=== PATIENT | male | born 1955 | race Caucasian/White ===

== ENCOUNTER → 2016-07-16 | Outpatient (CLI) | payer BC ==
[2014-04-09 08:23] VITALS: BP 154/97
[~2016-07-16] MED LIST: FELO10TA PO; HYDR12.53 PO; PRAV40TA2 PO
--- NOTE | 2016-07-16 12:15 | RAD ---
EXAM: Right lower extremity bone length study. HISTORY: Calvillo & Nephew protocol. COMPARISON: 05/18/2016. FINDINGS: Frontal views of the right lower extremity are obtained. There is mild medial compartment joint space narrowing and mild to moderate medial and lateral compartment spurring of the right knee. There is medial and lateral compartment chondrocalcinosis. There is a fractured metallic fixation bracket traversing a corticated ossific body and the medial condyle, stable in appearance. IMPRESSION: 1. Moderate osteoarthritis of the right knee with chondrocalcinosis, stable in appearance. 2. Metallic fixation bracket traversing a corticated ossicle and the medial condyle. There is [super portion of the bracket is fractured, stable in appearance.]
--- NOTE | 2016-07-16 12:37 | RAD ---
EXAM: Orbits, single view. HISTORY: Foreign body. COMPARISON: None. FINDINGS: A frontal view of the orbits is obtained. No metallic foreign body is seen overlying the orbits. There are dental restorations. There is no sinus opacification or air-fluid level. There is minimal nasal septal deviation. IMPRESSION: No metallic orbital foreign body.
--- NOTE | 2016-07-16 13:47 | RAD ---
MR of the right knee - Calvillo and Nephew protocol History: Chronic right knee pain. Preoperative planning. Technique: Sequences are obtained in accordance with the Calvillo and nephew protocol. Note this is not a diagnostic exam, but rather intended solely for the purpose of medical sonographer construction. Small joint effusion. Primary osteoarthritis and chondromalacia identified. Metal artifact presumably from hardware identified at medial knee. There is some signal at the anterior horn of the lateral meniscus, possible tear. Electronically signed by: Nick Foster MD (Jul 16, 2016 13:46:14)
== END | disposition home or self-care (01) ==
LOC: RAD 11:27
PROVIDERS: ATTEND Orthopaedic Surgery Sports Medicine
DX: M17.11 Unilateral primary osteoarthritis, right knee (principal); M11.261 Other chondrocalcinosis, right knee; J34.2 Deviated nasal septum; M25.461 Effusion, right knee; M94.261 Chondromalacia, right knee
CPT/HCPCS: 70030; 73721; 77073

== ENCOUNTER → 2016-07-30 | Outpatient (CLI) | payer BC ==
[2014-04-09 08:23] VITALS: BP 154/97
[2016-07-30 09:53] LABS: BILIRUBIN,URINE NEGATIVE (NEG); GLUCOSE,URINE NEGATIVE (NEG); NITRITE,URINE NEGATIVE (NEG); PH,URINE 5.5; PROTEIN,URINE NEGATIVE (NEG-TRACE); UROBILINOGEN,URINE 0.2 mg/dL (0.2 mg/dL)
[2016-07-30 09:54] LABS: BACTERIA,URINE 0 /HPF (0-FEW); RBC,URINE 0 /HPF (0-2); SQUAMOUS EPITHELIAL CELL,UR FEW /LPF; WBC,URINE OCC /HPF (0-4)
[2016-07-30 09:54] LABS: BASO # 0.1 x10^3/uL (0.0-0.2); BASO % 1 % (0-3); EOS % 2 % (0-3); HEMATOCRIT 47.1 % (39.0-53.0); HEMOGLOBIN 15.7 g/dL (13.0-17.5); LYMPH # 2.3 x10^3/uL (1.0-4.8); LYMPH % 31 % (24-48); MEAN CORPUSCULAR HEMOGLOBIN 29 pg (25-35); MEAN CORPUSCULAR HGB CONC 33 g/dL (31-37); MEAN CORPUSCULAR VOLUME 87 fL (79-100); MONO % 9 % (0-9); NEUT % 58 % (31-73); PLATELET COUNT 309 x10^3/uL (140-400); RED BLOOD COUNT 5.39 x10^6/uL (4.30-5.70); RED CELL DISTRIBUTION WIDTH 14.3 % (11.5-14.5); WHITE BLOOD COUNT 7.5 x10^3/uL (4.0-11.0)
[2016-07-30 10:03] LABS: INR 1.1 (0.8-1.1); PROTHROMBIN TIME PATIENT 13.3 SEC (11.7-14.0)
[2016-07-30 10:09] LABS: CALCIUM 9.3 mg/dL (8.5-10.1); CREATININE 1.2 mg/dL (0.7-1.3); GFR 61.1; POTASSIUM 3.8 mmol/L (3.5-5.1)
--- NOTE | 2016-07-30 12:30 | EKG ---
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
--- NOTE | 2016-07-30 15:06 | RAD ---
Indication: Preop for knee replacement surgery. Time of exam 1302 hours. No prior studies are available for comparison. The heart size is normal. The lungs are clear. The vascularity is normal. No effusion or pneumothorax is detected. Impression: No acute cardiopulmonary process is detected.
== END | disposition home or self-care (01) ==
LOC: SURGPAT 12:30
PROVIDERS: ATTEND Orthopaedic Surgery Sports Medicine
DX: Z01.818 Encounter for other preprocedural examination (principal); I10 Essential (primary) hypertension; E78.5 Hyperlipidemia, unspecified
CPT/HCPCS: 36415; 71020; 80048; 81001; 85027; 85610; 85651; 85730; 87641; 93005

== ENCOUNTER 2016-08-13 05:42 | Inpatient (IN) | payer BC ==
[2016-08-13] VITALS (10 sets, daily range): BP systolic 112–140; BP diastolic 75–96
[~2016-08-13] VITALS: Ht 188 cm; Wt 124.3 kg
[2016-08-13] MEDS ORDERED: HYDROCODONE/APAP 7.5/325MG TABLET. PO PRN (06:00)
[2016-08-13] MEDS ORDERED: TRANEXAMIC ACID 1,000 MG in IV NS 50ML -- 1ST BAG INJ ONE (06:00)
[2016-08-13] MEDS ORDERED: MORPHINE SULFATE 5 MG, ROPIVacaine 0.5% PF 60 ML, EPINEPHRINE 0.5 MG in IV NORMAL SALIN... INT ART ONE (06:00)
[2016-08-13] MEDS ORDERED: CEFAZOLIN 2GM PREMIX 50 ML IV PRN ×2 (06:00→12:15)
[2016-08-13] MEDS ORDERED: CEFAZOLIN 2GM PREMIX 50 ML IV ONE (06:25)
[2016-08-13] MEDS ORDERED: HYDROCODONE/APAP 7.5/325MG TABLET. ONE (06:25)
[2016-08-13] MEDS ORDERED: PROPOFOL 20 ML IV ONE (06:54)
[2016-08-13] MEDS ORDERED: FENTANYL PF 250 MCG/5 ML VIAL. ONE (06:54)
[2016-08-13] MEDS ORDERED: MIDAZOLAM HCL 2 MG/2 ML VIAL. ONE (06:54)
[2016-08-13] MEDS ORDERED: DEXAMETHASONE SOD PHOS 20 MG/5 ML VIAL. ONE (06:54)
[2016-08-13] MEDS ORDERED: SEVOFLURANE 61 TO 120 MINUTES. IH ONE (06:54)
[2016-08-13] MEDS ORDERED: ONDANSETRON PF 4 MG/2 ML VIAL. ONE (06:55)
[2016-08-13] MEDS ORDERED: FAMOTIDINE 20 MG/2 ML VIAL ONE (06:55)
[2016-08-13] MEDS ORDERED: LIDOCAINE 2% 100 MG/5 ML DISP.SYRIN. ONE (06:55)
[2016-08-13] MEDS ORDERED: PROCHLORPERAZINE 10 MG/2 ML VIAL. IV PRN ×2 (07:00→07:45)
[2016-08-13] MEDS ORDERED: IV RINGERS,LACTATED 1000ML 1,000 ML IV SCH (07:00)
[2016-08-13] MEDS ORDERED: MORPHINE SULFATE 2 MG/ML DISP.SYRIN. IV PRN ×2 (07:00→07:45)
[2016-08-13] MEDS ORDERED: LIDOCAINE 1% 1 ML SYRINGE. ID PRN (07:00)
[2016-08-13] MEDS ORDERED: HYDROCODONE/APAP 7.5/325MG TABLET. PO ONE (07:00)
[2016-08-13] MEDS ORDERED: ONDANSETRON PF 4 MG/2 ML VIAL. IV PRN (07:00)
[2016-08-13] MEDS ORDERED: FENTANYL PF 100 MCG/2 ML VIAL. IV PRN ×3 (07:00→07:45)
[2016-08-13 07:02] LABS: PROTHROMBIN TIME PATIENT 12.8 SEC (11.7-14.0)
--- NOTE | 2016-08-13 07:38 | PDOC ---
BRIEF OPERATIVE NOTE Date: Aug 13, 2016 Pre-Op Diagnosis R knee DJD Post-Op Diagnosis same Procedure Performed R TKA Surgeon Jeb Zaman Anesthesia Type: General Blood Loss 100mL Complications none ROLAND SHI II, MD Aug 13, 2016 07:38
[2016-08-13] MEDS ORDERED: METOCLOPRAMIDE HCL 10 MG/2 ML VIAL. IV PRN (07:45)
[2016-08-13] MEDS ORDERED: MORPHINE SULFATE 4 MG/ML DISP.SYRIN. IV PRN ×2 (07:45)
[2016-08-13] MEDS ORDERED: ACETAMINOPHEN 325 MG TABLET. PO PRN (07:45)
[2016-08-13] MEDS ORDERED: DIPHENHYDRAMINE 50 MG/ML VIAL IV PRN (07:45)
[2016-08-13] MEDS ORDERED: CEFAZOLIN 2GM PREMIX 50 ML IV SCH (07:45)
[2016-08-13] MEDS ORDERED: PROCHLORPERAZINE 5 MG TABLET. PO PRN (07:45)
[2016-08-13] MEDS ORDERED: 0.9 % SODIUM CHLORIDE 10 ML DISP.SYRIN. IV PRN (07:45)
[2016-08-13] MEDS ORDERED: TRAMADOL 50 MG TABLET. PO PRN ×2 (07:45)
[2016-08-13] MEDS ORDERED: MORPHINE SULFATE 10 MG/ML VIAL. IV PRN (07:45)
[2016-08-13] MEDS ORDERED: CALCIUM CARBONATE 500 MG TAB.CHEW PO PRN (07:45)
[2016-08-13] MEDS ORDERED: DEXTROSE 50% 25 GM / 50ML DISP.SYRIN. IV PRN (07:45)
[2016-08-13] MEDS ORDERED: TRANEXAMIC ACID 1,000 MG in IV NS 50ML -- 2ND BAG INJ ONE (08:00)
[2016-08-13] MEDS ORDERED: MORPHINE SULFATE 10 MG/ML VIAL. ONE (08:42)
[2016-08-13] MEDS: FENTANYL PF 100 MCG/2 ML VIAL. IV PRN ×2 (10:05→10:38)
[2016-08-13] MEDS: HYDROMORPHONE 2 MG/ML VIAL. IV PRN ×4 (10:20→11:06)
--- NOTE | 2016-08-13 10:30 | RAD ---
Right knee, 2 views, 08/13/2016: History: Postop evaluation Comparison is made to a study from 05/18/2016. A total knee prosthesis has been placed in satisfactory position. Again noted is a fractured old surgical staple related to the medial femoral condyle. It transfixes a bony fragment which appears to be nonunited. There is no evidence of a retained surgical clip, needle or radiopaque sponge. IMPRESSION: Interval insertion of a right total knee prosthesis in satisfactory position.
[2016-08-13] MEDS: IV DEXTROSE 5 %-0.45 % NACL 1,000 ML IV SCH ×2 (11:53→17:34)
[2016-08-13] MEDS: AMLODIPINE BESYLATE 10 MG TABLET PO SCH (12:00)
[2016-08-13] MEDS: HYDROCHLOROTHIAZIDE 12.5 MG CAPSULE. PO SCH (12:00)
[2016-08-13] MEDS: SENNOSIDES/DOCUSATE 8.6/50MG TABLET. PO SCH (12:08)
[2016-08-13] MEDS: CEFAZOLIN 2GM PREMIX 50 ML IV SCH ×2 (12:12→18:26)
[2016-08-13] MEDS: HYDROCODONE/APAP 7.5/325MG TABLET. PO PRN ×2 (14:38→21:35)
[2016-08-13] MEDS ORDERED: WARFARIN 7.5 MG TABLET. PO ONE (16:00)
[2016-08-13] MEDS: FERROUS SULFATE 325 MG TABLET PO SCH (16:44)
[2016-08-13] MEDS: HYDROCODONE/APAP 10/325 TABLET. PO PRN (17:52)
[2016-08-13] MEDS ORDERED: CELECOXIB 200 MG CAPSULE PO SCH (21:00)
--- NOTE | 2016-08-13 21:08 | OP ---
DATE OF SURGERY: 08/13/2016 SURGEON: Alonso Shi MD. WELDING PROCESS ENGINEER: Divina Zaman. ANESTHESIA: General. PREOPERATIVE DIAGNOSIS: Posttraumatic arthritis, right knee. POSTOPERATIVE DIAGNOSIS: Posttraumatic arthritis, right knee. PROCEDURE PERFORMED: Right total knee arthroplasty. COMPONENTS INSERTED: 1. Calvillo and Nephew size 7 Journey II Oxinium femoral component. 2. A 9 mm thick polyethylene insert. 3. Size 6 tibial tray. 4. A 23 mm biconvex patella. ESTIMATED BLOOD LOSS: 100 mL. TOURNIQUET TIME: 60 minutes. REASON FOR PROCEDURE: The patient is a very pleasant 61-year-old gentleman who failed all conservative therapies including brace, physical therapy, rehabilitation, and injections for his severe and progressive right knee pain that was interfering with his ability to exercise as well as walk. Because of the progressive pain and failure of conservative therapies, he and I had a discussion of risks, benefits, alternatives of proceeding with the above surgery and he elected to proceed. DESCRIPTION OF PROCEDURE: The patient was greeted in the preoperative area by myself. Correct extremity was marked and verified. He was taken to the operative suite and antibiotics were started en route. Once in the OR, he was transferred gently supine on the OR table and had successful induction of general anesthesia. He was then secured to the bed with all pressure points padded and a nonsterile tourniquet was taped in place to his right thigh. We placed a foot plate for Boyer leg connelly and a padded bolster at his hip to maintain his knee in 90 degrees. I conducted an examination under anesthesia. His knee was stable to varus and valgus at 0 and 30 of flexion. His range of motion was 5 degrees to 110 degrees. We then proceeded to prep and drape right lower extremity in usual sterile fashion including an Ioban sandwich. We then conducted a standard preoperative timeout. I then palpated, marked surface anatomy and exsanguinated the extremity with an Esmarch and insufflated the tourniquet to 300 mmHg. I then made my standard anterior midline skin incision, dissected down through subcutaneous tissue, identified the quadriceps tendon, medial border of the patella and patellar tendon. He had a fair amount of thick fibrotic scar tissue from approximately the mid portion of the patella distally at the medial knee. I elected to go through my preferred incision as his 2 prior skin incisions were approximately 40 years old. In addition to that, they were medial and lateral incisions. I continued my dissection and performed a medial parapatellar arthrotomy in my routine fashion. I then brought the leg out into extension and bluntly dissected the fat pad off the posterior aspect of the patella and protected this with an Army-Wathena and then excised the fat pad with curved Mayos. I released horns of the menisci and then performed my medial release with a combination of Orosco and electrocautery. I then flexed the knee and excised the cruciates. I then placed my Visionaire cutting block, we pinned this into place. I then removed the Visionaire cutting block as I did not think it would accommodate for the additional cut I needed to make. I then placed my normal distal femoral cutting block at the +2 position and placed a third pin and then made my distal femoral cut. I then placed my 5-in-1 cutting guide through my Visionaire holes at the distal femur. Z retractors were used. I then made my distal femoral cuts in these planes. I then removed the 5-in-1 cutting guide and the loose bone ends from the operative field. I took care to ensure I removed all posterior osteophytes. After this, I placed my pickle fork retractor, my two Z retractors and then my extramedullary tibial cutting guide and made my proximal tibial cut after pinning this into place. I delivered the bone cut from the operative field with the electrocautery circumferentially around it. I then trialed my tibial baseplate and felt a size 6 gave the best coverage. I pinned this into place, referencing the medial third of the tibial tubercle. I then drilled and punched for the fittings of the baseplate. I then impacted my trial femoral component in place and then reamed and punched for my cam and then placed my cam piece. then trialed a 9/10 polyarticular insert, but the tendon was too tight. This range of motion with the 9 in placd was 0-140 degrees. His knee was stable to varus and valgus in extension and mid flexion. After this, I directed my attention to the patella and sized and reamed for a 23 biconvex patella. I was happy this patellar tracking with range of motion. I then removed all trial components, thoroughly irrigated all bony surfaces and proceeded to cement in place my tibial component followed by my femoral component. After these two were placed trial polyethylene articular insert was inserted and cement was allowed to polymerize with the knee in extension. All excess bone cement was removed. I then clamped and cementing my patellar button into place. I then injected my periarticular mixture in the missael-incisional soft tissues as well as the knee capsule. After this, I allowed the cement to fully harden and then we trialed the knee in range of motion and stability, again I selected a 9. I removed the trial 9 and replaced it with a 9 mm thick polyethylene articular insert. After this, the tourniquet was let down. Bleeders were cauterized. It should be noted that prior to placing my permanent polyethylene insert, I did irrigate out the knee again. There was some venous oozing, but there really was not too much and I elected not to place a drain. I then closed the arthrotomy with simple interrupted #1 Vicryl with the exception of a dnkaot-xo-svkkv proximally. I then tested the arthrotomy closure in flexion. There was no extravasation of blood. Inverted interrupted 2-0 in a multilayer fashion was used for subcutaneous tissue and running 4-0 Monocryl was used for skin. Prior to accomplishing wound closure, all counts were reported correct x 2. The patient tolerated surgery well. No complications. At the conclusion of surgery, he was awakened and transferred gently supine to the hospital bed and taken to PACU in stable and extubated condition. Postop plan [facility] as well as for DVT and antibiotic prophylaxis. ALONSO SHI MD DR: JADON/anthony JOB#: [id number] / [id number] ELISSA
[2016-08-13] MEDS: ATORVASTATIN CALCIUM 10 MG TABLET. PO SCH (21:36)
[2016-08-13] MEDS: ZOLPIDEM 5 MG TABLET. PO PRN (21:38)
[2016-08-14] MEDS: CEFAZOLIN 2GM PREMIX 50 ML IV SCH (01:28)
[2016-08-14] MEDS: HYDROCODONE/APAP 10/325 TABLET. PO PRN ×2 (01:28→08:57)
[2016-08-14] MEDS: IV DEXTROSE 5 %-0.45 % NACL 1,000 ML IV SCH (03:34)
[2016-08-14] MEDS ORDERED: MAGNESIUM HYDROXIDE 2,400 MG/30 ML ORAL.SUSP. PO PRN (06:00)
[2016-08-14] MEDS: HYDROCODONE/APAP 7.5/325MG TABLET. PO PRN (06:08)
[2016-08-14 07:00] VITALS: BP 137/84
[2016-08-14 08:00] LABS: HEMATOCRIT 42.1 % (39.0-53.0); HEMOGLOBIN 13.6 g/dL (13.0-17.5)
[2016-08-14 08:44] LABS: INR 1.3 (0.8-1.1); PROTHROMBIN TIME PATIENT 15.5 SEC (11.7-14.0)
[2016-08-14] MEDS: MULTIVITAMIN with MINERAL TABLET. PO SCH (08:57)
[2016-08-14] MEDS: HYDROCHLOROTHIAZIDE 12.5 MG CAPSULE. PO SCH (08:58)
[2016-08-14] MEDS: FERROUS SULFATE 325 MG TABLET PO SCH ×2 (08:58→17:00)
[2016-08-14] MEDS: SENNOSIDES/DOCUSATE 8.6/50MG TABLET. PO SCH (08:58)
[2016-08-14] MEDS: AMLODIPINE BESYLATE 10 MG TABLET PO SCH (08:58)
--- NOTE | 2016-08-14 09:12 | DISCH ---
DISCHARGE INSTRUCTIONS Condition on Discharge Condition on Discharge: Stable Activity After Discharge Activity Instructions for Disc: No restrictions Bathing Instructions: Shower-keep dressing dry Weight Bearing Status after Di: As tolerated Diet after Discharge Diet after Discharge: Regular Wound Incision Care Wound/Incision Care: Ice to area for comfort, Keep wound/cast CDI, Do not change dressing Contacting the DRAlex after DC Call your doctor for: Concerns you may have Follow-Up Follow up with: Jeb in 2wks Warfarin Follow-Up Warfarin Follow UP: per pharmacy ROLAND SHI II, MD Aug 14, 2016 09:12
--- NOTE | 2016-08-14 09:14 | PDOC ---
ORTHO PROGRESS NOTES Subjective Nils tells me that his pain is tolerable. He was up and walking around yesterday. Descended chair as well. He denies any particular complaints or concern, he is eager to get started on his rehabilitation. Vitals Vital Signs Date Time Temp Pulse Resp B/P Pulse Ox O2 Delivery O2 Flow Rate FiO2 08/14/16 08:58 111 137/84 08/14/16 08:57 Room Air 08/14/16 07:00 99.1 14 96 99.1 08/13/16 19:50 2.0 Labs Laboratory Tests Test 08/13/16 06:10 08/13/16 06:15 08/14/16 07:40 Albumin 3.8g/dL (3.4-5.0) Prothrombin Time 12.8SEC (11.7-14.0) 15.5SEC (11.7-14.0) Prothromb Time International Ratio 1.0 (0.8-1.1) 1.3 (0.8-1.1) Activated Partial Thromboplast Time 28SEC (24-38) Hemoglobin 13.6g/dL (13.0-17.5) Hematocrit 42.1% (39.0-53.0) Mean Corpuscular Hemoglobin Concent 32g/dL (31-37) Laboratory Tests Test 08/14/16 07:40 Hemoglobin 13.6g/dL (13.0-17.5) Hematocrit 42.1% (39.0-53.0) Mean Corpuscular Hemoglobin Concent 32g/dL (31-37) Prothrombin Time 15.5SEC (11.7-14.0) Prothromb Time International Ratio 1.3 (0.8-1.1) Notes He is awake and alert and resting in bed. His dressing is intact and dry. Mild edema at his right ankle. He can wiggle his toes. Dorsalis pedis 2+. EHL and FHL. 5. Normal sensation. Assessment and Plan He will start his rehabilitation. We will anticipate him being discharged home tomorrow. ROLAND SHI II, MD Aug 14, 2016 09:14
[2016-08-14 11:00] VITALS: BP 147/85
[2016-08-14 11:15] VITALS: BP 150/94
[2016-08-14] MEDS: OXYCODONE/APAP 5/325 TABLET. PO PRN ×2 (11:34→17:02)
[2016-08-14] MEDS ORDERED: BISACODYL 10 MG SUPP.RECT PR PRN (16:00)
[2016-08-14] MEDS ORDERED: WARFARIN 5 MG TABLET. PO ONE (16:00)
[2016-08-14 18:00] VITALS: BP 155/101
[2016-08-14] MEDS: ATORVASTATIN CALCIUM 10 MG TABLET. PO SCH (20:46)
[2016-08-14] MEDS: ZOLPIDEM 5 MG TABLET. PO PRN (21:02)
[2016-08-15 06:40] VITALS: BP 139/89
[2016-08-15] MEDS: OXYCODONE/APAP 7.5/325 TABLET. PO PRN ×2 (06:47→12:27)
[2016-08-15 07:37] LABS: HEMATOCRIT 42.6 % (39.0-53.0)
[2016-08-15] MEDS ORDERED: POLYETHYLENE GLYCOL 3350 17 GM PACKET. PO PRN (07:45)
[2016-08-15 07:46] LABS: INR 1.6 (0.8-1.1); PROTHROMBIN TIME PATIENT 17.8 SEC (11.7-14.0)
[2016-08-15] MEDS: HYDROCHLOROTHIAZIDE 12.5 MG CAPSULE. PO SCH (08:22)
[2016-08-15] MEDS: MULTIVITAMIN with MINERAL TABLET. PO SCH (08:22)
[2016-08-15] MEDS: FERROUS SULFATE 325 MG TABLET PO SCH (08:23)
[2016-08-15] MEDS: SENNOSIDES/DOCUSATE 8.6/50MG TABLET. PO SCH (08:23)
[2016-08-15] MEDS: AMLODIPINE BESYLATE 10 MG TABLET PO SCH (08:26)
--- NOTE | 2016-08-15 08:47 | PDOC ---
ORTHO PROGRESS NOTES Subjective pain controlled, +bm, no abd complaints. No CP, SOB, N/V Vitals Vital Signs Date Time Temp Pulse Resp B/P Pulse Ox O2 Delivery O2 Flow Rate FiO2 08/15/16 08:26 121 131/86 08/15/16 07:54 Room Air 08/15/16 07:47 97 08/15/16 06:47 18 08/15/16 06:40 98.5 98.5 Labs Laboratory Tests Test 08/14/16 07:40 08/15/16 07:05 Hemoglobin 13.6g/dL (13.0-17.5) 14.0g/dL (13.0-17.5) Hematocrit 42.1% (39.0-53.0) 42.6% (39.0-53.0) Mean Corpuscular Hemoglobin Concent 32g/dL (31-37) 33g/dL (31-37) Prothrombin Time 15.5SEC (11.7-14.0) 17.8SEC (11.7-14.0) Prothromb Time International Ratio 1.3 (0.8-1.1) 1.6 (0.8-1.1) Laboratory Tests Test 08/15/16 07:05 Hemoglobin 14.0g/dL (13.0-17.5) Hematocrit 42.6% (39.0-53.0) Mean Corpuscular Hemoglobin Concent 33g/dL (31-37) Prothrombin Time 17.8SEC (11.7-14.0) Prothromb Time International Ratio 1.6 (0.8-1.1) Notes A and A in chair dressing dry remains NVI RLE Assessment and Plan home with outpatient PT today f/u in 2wks ROLAND SHI II, MD Aug 15, 2016 08:47
[2016-08-15] MEDS ORDERED: WARF4TAB PO (10:23)
[2016-08-15] MEDS ORDERED: AMLO10TA4 PO (10:24)
[2016-08-15] MEDS ORDERED: ZOLP10TA PO (10:26)
[2016-08-15] MEDS ORDERED: WARFARIN 4 MG TABLET. PO ONE (11:00)
[2016-08-15 11:49] VITALS: BP 147/95
--- NOTE | 2016-08-15 15:03 | PATHOLOGY ---
PATHOLOGY REPORT * * * * * * * * FINAL DIAGNOSIS: Segments of bone and soft tissue, right total knee arthroplasty: - Degenerative arthritis. (JPM:matilde; d/t: 08/15/2016) REPORT ELECTRONICALLY SIGNED BY: Ck Hernandez M.D. DATE/TIME: 08/15/2016 15:02 * * * * * * * * GROSS PATHOLOGY: Received in formalin labeled "Rocky Nevarez, right knee tissue," are multiple segments of bone, including tibial plateau, measuring 11.7 x 7.8 x 2.4 cm in aggregate dimensions admixed with soft tissue; meniscus is present.The articular surfaces are light steele and show degenerative changes with no gross evidence of eburnation. Sales Account Coordinator sections of bone and soft tissue are submitted in cassette A1, following decalcification. (CAA:JPM;matilde; 08/14/2016) INITIAL CPT CODE(S): A; 47077, 83181 Professional services performed [place] [facility] [place] [address] Technical services performed by [facility] at [address] [place] [address]. SPECIMEN(S) RECEIVED: A.Right knee tissue CLINICAL HISTORY: Right knee OA PATIENT: ROCKY NEVAREZ /AGE: 8 1955 (Age: 61) PATIENT #: [id number] ALT CASE #: SPECIMEN COLLECTION DATE: 08/13/2016 SPECIMEN RECEIVED DATE: 08/13/2016 [facility] - [address] [place] [address] - PHONE: [phone] * * * END OF REPORT * * *
--- NOTE | 2016-08-16 09:03 | PDOC3 ---
Discharge Summary Visit Information Date of Admission: Aug 13, 2016 Date of Discharge: Aug 15, 2016 Admitting Diagnosis: advanced right knee degenerative joint disease Final Diagnosis Problems Medical Problems: (1) Post-traumatic osteoarthritis of right knee Status: Acute Brief Hospital Course Allergies Allergies Coded Allergies Type Severity Reaction Last Updated Verified NSAIDS (Non-Steroidal Anti-Inflamma Allergy Intermediate rash 08/13/16 Yes Vital Signs Vital Signs Date Time Temp Pulse Resp B/P Pulse Ox O2 Delivery O2 Flow Rate FiO2 08/15/16 11:49 98.5 130 18 147/95 95 Room Air 98.5 Lab Results Laboratory Tests Test 08/15/16 07:05 Hemoglobin 14.0g/dL (13.0-17.5) Hematocrit 42.6% (39.0-53.0) Mean Corpuscular Hemoglobin Concent 33g/dL (31-37) Prothrombin Time 17.8SEC (11.7-14.0) Prothromb Time International Ratio 1.6 (0.8-1.1) Brief Hospital Course Mr. Nevarez is a 61 old male who presented to my outpatient orthopedic surgery clinic with complaints of severe and progressive pain that failed conservative therapies including injections. We had a discussion of the risks, benefits, alternatives to total knee arthroplasty and he elected to proceed. He tolerated surgery well cover well from anesthesia in the PACU. [facility] for care and observation. He did receive PT, OT, DVT and antibiotic prophylaxis. He recovered well from surgery and remained hemodynamically stable and afebrile throughout the hospitalization. Pain was controlled on oral pain medicine at the time of discharge. Good progress was made with therapy throughout the hospitalization, and activities of daily living were accomplished by the patient. The incision was clean dry and intact and the operative extremity had normal motor and sensation. Discharge Information Condition at Discharge: Stable Follow Up: Weeks Disposition/Orders: D/C to Home Scheduled Felodipine (Felodipine Er) 10 MG PO DAILY (Reported) Hydrochlorothiazide (Hydrochlorothiazide Capsule ) 12.5 MG PO DAILY (Reported ) Pravastatin Sodium (Pravastatin Sodium) 40 MG PO DAILY (Reported) Warfarin Sodium (Coumadin) 1 TAB PO DAILY (Reported) Scheduled PRN Zolpidem Tartrate (Ambien) 1 TAB PO QHS PRN PRN insomnia (Reported) Discontinued Medications Amlodipine Besylate (Norvasc) 10 MG PO DAILY (Reported) Patient Instructions Patient Instructions He will be discharged home. Home health care has been set up. We will get him started on outpatient therapy as soon as we are able. The patient will be on Coumadin for a month. He can weight-bear as tolerated. Worrisome signs and symptoms that should prompt a phone call to my office were discussed. We'll see him back in 2 weeks, sooner should a problem arise. ROLAND SHI II, MD Aug 16, 2016 09:03
== END 2016-08-15 13:00 | disposition home or self-care (01) | DRG 470 ==
LOC: OPSVCIP 05:42 → 4 NORTH 11:16 → 4 SOUTHEST 08-14 11:29
PROVIDERS: ADMIT Orthopaedic Surgery Sports Medicine; ATTEND Orthopaedic Surgery Sports Medicine
PROC: 0SRC0J9 Replacement of Right Knee Joint with Synthetic Substitute, Cemented, Open Approach (ICD-10-PCS; principal; 2016-08-13 07:30)
DX: M17.31 Unilateral post-traumatic osteoarthritis, right knee (principal); Z88.8 Allergy status to other drugs, medicaments and biological substances
CPT/HCPCS: 36415; 73560; 82040; 85014; 85018; 85610; 85730; 86850; 86900; 86901; 88305; 88311; J0171; J0690; J1100; J1170; J2250; J2270; J2405; J2704; J2795; J3010; J7030; J7120; S0028; 97110; 97116; 97150; 97530; 97535; C1769

== ENCOUNTER → 2020-03-25 | Outpatient (CLI) | payer MEDICARE, BC ==
[2016-08-15 08:26] VITALS: BP 131/86
[~2020-03-25] MED LIST changes: +AMLO10TA4 PO; -FELO10TA PO; +FELO10TA4 PO; -HYDR12.53 PO; +HYDR12.575 PO; +WARF4TAB68 PO; +ZOLP10TA PO
--- NOTE | 2020-03-25 13:28 | KCIC ---
EXAMINATION: KNEE LEFT 3V CLINICAL HISTORY: Reason: LBP LEFT LEG WEAKNESS /LEFT KNEE PAIN / Spl. Instructions: / History: Pt c/o chronic left knee pain and also left leg weakness. TECHNIQUE: KNEE LEFT 3V Number of Images/Views: 3 COMPARISON: None FINDINGS: Mild medial and lateral compartment narrowing. Tricompartmental small marginal osteophytes. No acute fracture. No joint effusion. IMPRESSION: Mild degenerative changes as described. Electronically signed by: Griffin Santiago DO (03/25/2020 1:25 PM) [id number]
--- NOTE | 2020-03-25 14:12 | KCIC ---
MRI Lumbar Spine without contrast History: Left leg weakness, tingling in the leg, previous surgery Technique: Multiplanar, multi sequential noncontrast MR imaging was performed of the lumbar spine. Comparison: None Findings: Lumbar vertebral body stature is overall maintained, small inferior L1 Schmorl's node. There is mild grade 1 anterior spondylolisthesis L3-4 and L4-5, very minimal posterior subluxation L5 relative to S1. There is advanced degenerative disc disease L5-S1, mild degenerative disc disease L3-4 and L4-5. Conus terminates at L1. There are posterior annular tears L3-4 and L4-5. There are T2 hyperintense foci of the visualized bilateral kidneys, one of the larger foci on the right about 3.9 cm. Kidneys are not fully evaluated. L1-L2: There is mild buckling of the ligamentum flavum and prominence of posterior central epidural fat. There is mild facet degenerative change. Left neural foramen and spinal canal are adequate. There is mild narrowing of the posterior right neural foramen by facet. L2-L3: There is prominence of posterior epidural fat centrally. There is mild to moderate buckling of the ligamentum flavum and facet degenerative change. There is negligible posterior bulge. There is chpz-yw-rqwkhrng attenuation of the thecal sac mostly from epidural lipomatosis. There is mild right greater than left neural foramina compromise from posteriorly by facets. L3-L4: There are small bilateral laminectomy defects. There is facet hypertrophic change. There is nvby-mr-kytsopei buckling of the residual ligamentum flavum. There is prominence of posterior epidural fat centrally. There is broad posterior bulge, no contrast given to evaluate for enhancing fibrosis. There is mild narrowing of the far left lateral recess. There is moderate to severe narrowing of the left neural foramen by facet and disc osteophyte complex with degree of contact exiting left L3 nerve root. There is moderate narrowing on the right also with degree of contact of the exiting right L3 nerve root. L4-L5: There is moderate facet degenerative change and mild buckling of the ligamentum flavum. There is negligible disc osteophyte complex. There is mild narrowing of the far lateral recesses bilaterally from posteriorly. There is mild right and xhni-on-fbzokmmc left neural foramina compromise from posteriorly by facets. L5-S1: There is minimal disc osteophyte complex greater in the inferior neural foramina, left greater than right. Spinal canal is adequate. There is mild facet degenerative change. There is moderate right and mild to moderate left neural foramina compromise by facets and disc osteophyte complex. Impression: 1. There is hxhd-aw-fjcwudkr attenuation of the thecal sac at L2-3 mostly from epidural lipomatosis. There is mild left lateral recess stenosis at L3-4, also bilaterally at L4-5. 2. There is neural foramina compromise as described most notable left greater than right at L3-4, edgs-sx-zxpttlqo narrowing on the left at L4-5 and bilaterally at L5-S1. 3. There is advanced L5-S1 degenerative disc disease, minimally at L3-4 and L4-5. 4. There is multilevel mild abnormal alignment as stated, multilevel facet degenerative change. Electronically signed by: Kt Rodriguez MD (03/25/2020 2:08 PM) [id number]
== END | disposition home or self-care (01) ==
LOC: KCIC MRI 12:19
PROVIDERS: ATTEND Family Medicine
DX: M17.12 Unilateral primary osteoarthritis, left knee (principal); M51.37 Other intervertebral disc degeneration, lumbosacral region; M48.07 Spinal stenosis, lumbosacral region; M43.17 Spondylolisthesis, lumbosacral region; M25.78 Osteophyte, vertebrae; M47.817 Spondylosis without myelopathy or radiculopathy, lumbosacral region
CPT/HCPCS: 72148; 73562

== ENCOUNTER → 2020-04-01 | Outpatient (CLI) | payer MEDICARE, BC ==
[2016-08-15 08:26] VITALS: BP 131/86
--- NOTE | 2020-04-01 16:40 | KCIC ---
3 view study of the lumbar spine including lateral flexion and lateral extension extension and lateral neutral views Clinical indications: Spondylolisthesis. FINDINGS: Grade 1 anterolisthesis of L3-4 is seen which measures 6 mm in flexion and 6 mm in extension. Grade 1 anterolisthesis of L4-5 is seen which measures 3 mm in flexion and 4 mm in extension. Mild retrolisthesis of L5-S1 is seen which does not change significantly during flexion and extension. This measures 3 mm. Degenerative facet arthropathy is seen from L3-4 down through L5-S1. No compression fracture or discitis or lytic process evident. There is degenerative disc space narrowing and endplate spurring at L3-4 and L4-5 and L5-S1. IMPRESSION: Grade 1 anterolisthesis of L3-4 and L4-5. Mild retrolisthesis of L5-S1. Electronically signed by: Tez Núñez MD (04/01/2020 4:37 PM) [id number]
== END | disposition home or self-care (01) ==
LOC: KCIC 13:02
PROVIDERS: ATTEND Neurological Surgery
DX: M47.817 Spondylosis without myelopathy or radiculopathy, lumbosacral region (principal); M43.17 Spondylolisthesis, lumbosacral region; M48.07 Spinal stenosis, lumbosacral region
CPT/HCPCS: 72100

== ENCOUNTER → 2020-04-12 | Outpatient (CLI) | payer MEDICARE, BC ==
[2016-08-15 08:26] VITALS: BP 131/86
[~2020-04-12] MED LIST changes: +IOHEXOL 180 MG/ML 10 ML VIAL. ONE; +TRAM50TA PO; +methylPREDNISolone ACETATE 40 MG/ML VIAL. ONE; +methylPREDNISolone ACETATE 80 MG/ML VIAL. ONE
--- NOTE | 2020-04-12 12:38 | PDOC1 ---
INITIAL PAIN CONSULT DATE OF SERVICE: DOS: DATE: 04/12/20 TIME: 12:30 CHIEF COMPLAINT: Chief Complaint: Low back and left lower extremity pain HISTORY OF PRESENT ILLNESS: 65-year-old male presents history of pain low back left lower extremity for patient ports worse with walking standing changing positions across the low back in the left lower extremity posterior gluteus posterior lateral thigh posterior calf posterior ankle and foot worse with walking standing changing positions better with sitting or laying down patient reports the pain is sharp and constant becoming more noticeable with time changing positions standing walking stooping or bending, disturbs sleep about every 3-4 hours patient reports does not affect his bowel bladder control but does affect his body walk he has a cane he has it with him today holding his right hand. Patient tried tramadol as well as Tylenol neither which did help significantly also has done physical therapy and chiropractic treatments he is ongoing about twice a week ago with limited results as well patient reports he does do exercise on his own and has not epidural injections about 8 years ago which were helpful as well. 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 Patient have MRI scan lumbar spine showing mild to moderate attenuation of the thecal sac at L2-3 epidural lipomatosis neuroforaminal compromise most notably on the left greater than right at L3-4 mild to moderate narrowing the left L4-5 bilateral L5-S1 with advanced L5-S1 degenerative disc disease minimally at L3-4 and L4-5. PAST MEDICAL HISTORY: PMH: Hypertension, arthritis PREVIOUS SURGERIES: Past Surgical Hx: Right knee replacement 2015, left shoulder replacement 1976, lumbar laminectomy 2012 CURRENT MEDICATIONS: Current Meds: Active Scripts Medications Dose Route/Sig Max Daily Dose Days Date Category Dose Instructions Tramadol Hcl 50 Mg Tablet 50 Mg PO Q4HRS PRN 04/12/20 Reported Pravastatin Sodium 40 Mg Tablet 40 Mg PO DAILY 04/09/14 Reported last dose last night next dose is tonight Felodipine Er (Felodipine) 10 Mg Tab.er.24h 10 Mg PO DAILY 04/09/14 Reported ot given in the hospital was substituting norvasc Hydrochlorothiazide Capsule (Hydrochlorothiazide) 12.5 Mg Capsule 12.5 Mg PO DAILY 04/09/14 Reported last dose this am next dose tomorrow am ALLERGIES; Allergies: Coded Allergies: NSAIDS (Non-Steroidal Anti-Inflamma (Verified Allergy, Intermediate, rash, 08/13/16) FAMILY HISTORY: Family Hx: No major medical problems or conditions he is aware of SOCIAL HISTORY: Social Hx: Patient drinks alcohol only very rarely does not smoke not use any illegal illicit or recreational drugs is lives with his spouse lives locally in [facility] and reports he is currently retired. REVIEW OF SYSTEMS: ROS: Positive for those items mentioned in history of present illness, all systems are reviewed, otherwise negative, is complete full and well-documented on patient's chart PHYSICAL EXAM: VS: Blood pressure is 181/106 pulse 109 respirations 18 temperature is 99.3 F height is 6 feet 1 inches weight is 2 8 4 pounds PE: PHYSICAL EXAMINATION: GENERAL: The patient is awake, alert, oriented, appropriate, very pleasant demeanor HEENT: Shows normocephalic, atraumatic. Extraocular movements are intact and symmetrical. Oral cavity: Mucous membranes moist and pink. NECK: Shows anterior throat supple without palpable lymphadenopathy noted. Swallow reflex symmetrical. CHEST: Shows normal on inspection. Breath sounds are clear bilaterally, no rales rhonchi or wheezes. HEART: Shows S1, S2 clear. No murmurs auscultated. ABDOMEN: Soft, nontender, nondistended, obese. No palpable organomegaly is noted. No rebound or guarding demonstrated. BACK: Shows spine grossly in the midline. Normal-appearing cervical lordotic curvature. There is slightly increased thoracic kyphosis, some minor flattening of the lumbar lordotic curvature. Lumbar paraspinous muscles show symmetrical on inspection, on palpation shows some moderate tenderness diffusely throughout the upper, middle and lower distribution of the paraspinous muscles bilaterally, but without specific trigger points, without radiation of pain. The patient has good rotational motion of the lumbar spine, both laterally as well as extension and flexion without significant difficulty. No tenderness over the spinous processes, sacrum or sacroiliac regions. EXTREMITIES: Lower extremities show deep tendon reflexes 1+ in the patellar and tendo calcaneus tendons. Motor exam is 5 on a scale of 5 with right dorsiflexion, extension, quadriceps and hamstring flexion and 4/5 on the left. Peripheral pulses are 1+ posterior tibial. No peripheral edema is noted bilaterally. Lower extremities are warm and dry to touch, equal in color and appearance. Straight leg raise noted to be negative on the right, left side is positive at about 35 degrees, decreased with knee flexion. Gaenslen's and Navid's maneuvers are negative as well. The patient is able to stand, stand on his toes without significant difficulty or loss of balance walks with a slight favoring gait does appear to favor the left lower extremity mildly and using a cane in his right hand ambulate. SKIN: Shows warm and dry, good turgor. No edema. No sores, rashes or bruising throughout. IMPRESSION: Impression: 65-year-old male with several month history increasing pain low back left lower extremity radicular fashion MRI scan lumbar spine as noted Hypertension Arthritis Plan: Options discussed with the patient occluding conservative back amendments physical therapies and epidural techniques he like to pursue interventional techniques. We discussed a lumbar epidural steroid injection his description as well as anatomical model to describe the procedure. Risks were discussed including but not limited to: Bleeding, infection, possibility of epidural hematoma and subsequent neurological compromise, dural puncture, headaches, spinal cord and/or nerve damage, side effects of steroid medication, and poor results regarding pain control. Patient understands wished to proceed. Patient will return to clinic in possibly 2 weeks for follow-up was counseled as return appointment activity level and side effects to be aware of. Procedure is lumbar epidural steroid injection under local anesthetic using sterile prep and drape at the L5-S1 level using C-arm fluoroscopic guidance in both AP and lateral views medications injected is 120 mg Depo-Medrol + 10 mL preservative-free normal saline and 2 mL contrast- condition at discharge is stable patient tolerated procedure well had no complications. MARK ANTHONY URENA MD Apr 12, 2020 12:38
== END | disposition home or self-care (01) ==
LOC: PNCL 10:14
PROVIDERS: ATTEND Anesthesiology
DX: M51.37 Other intervertebral disc degeneration, lumbosacral region (principal); M79.605 Pain in left leg; I10 Essential (primary) hypertension; M19.90 Unspecified osteoarthritis, unspecified site; Z96.612 Presence of left artificial shoulder joint; Z96.651 Presence of right artificial knee joint; Z88.8 Allergy status to other drugs, medicaments and biological substances; Z79.899 Other long term (current) drug therapy
CPT/HCPCS: 62323; J1030; J1040; Q9965

== ENCOUNTER → 2020-05-10 | Outpatient (CLI) | payer MEDICARE, BC ==
[2016-08-15 08:26] VITALS: BP 131/86
--- NOTE | 2020-05-10 09:51 | PDOC ---
Progress Note - Pain Clinic Date of Service: DOS: DATE: 05/10/20 TIME: 09:48 Diagnosis: Dx: Lumbar radiculopathy with lumbar degenerative disc disease lumbar spinal stenosis and post lumbar laminectomy syndrome History or Present Illness: HPI: 65-year-old male returns follow-up status post lumbar epidural to injection x1. Patient reports about 50% improvement in the low back and left lower extremity pain. Patient reports he is been increase his activity greater ease and comfort walking greater distances doing household activities try with greater ease patient reports pain is 7 on scale 10 is worse over the past week 6 on average for this least is a 4 today patient ports tingling and burning sharp at times in the low back posterior gluteus posterior thigh to level of the knee or slightly into the upper calf patient reports it can be tingling and burning this area but much better than it was previously. Patient reports no new motor or sensory deficits no new bowel or bladder incontinence or other complaints. Physical Exam: VS: Blood pressure is 137/97 pulse 116 respirations 18 temperature 97.8 F height is 6 foot 1 his weight is 2 7 7 pounds PE: PHYSICAL EXAMINATION: GENERAL: The patient is awake, alert, oriented, appropriate, very pleasant demeanor HEENT: Shows normocephalic, atraumatic. Extraocular movements are intact and symmetrical. NECK: Shows anterior throat supple without palpable lymphadenopathy noted. Swallow reflex symmetrical. CHEST: Shows normal on inspection. Breath sounds are clear bilaterally no rales rhonchi auscultated. HEART: Shows S1, S2 clear. No murmurs auscultated. ABDOMEN: Soft, nontender, nondistended, obese. No palpable organomegaly is noted. No rebound or guarding demonstrated. BACK: Shows spine grossly in the midline. Normal-appearing cervical lordotic curvature. There is slightly increased thoracic kyphosis, some minor flattening of the lumbar lordotic curvature with well-healed surgical scarring noted in the midline. Lumbar paraspinous muscles show symmetrical on inspection, on palpation shows some moderate tenderness diffusely throughout the upper, middle and lower distribution of the paraspinous muscles, but without specific trigger points, without radiation of pain. The patient has good rotational motion of the lumbar spine, both laterally as well as extension and flexion without significant difficulty. No tenderness over the spinous processes, sacrum or sacroiliac regions. EXTREMITIES: Lower extremities show deep tendon reflexes 1 in the patellar and tendo calcaneus tendons. Motor exam is 5 on a scale of 5 with right dorsiflexion, extension, quadriceps and hamstring flexion and 4/5 on the left. Peripheral pulses are 1+ posterior tibial. No peripheral edema is noted bilaterally. Lower extremities are warm and dry to touch, equal in color and appearance. SKIN: Shows warm and dry, good turgor. No edema. No sores, rashes or bruising throughout. Procedure: Procedure: Options were discussed with the patient. Patient chart was reviewed his his current medication regimen updated current review of systems updated today as we ll. We will proceed with a second in the series lumbar epidurals or injections today with fluoroscopic guidance. Risks were discussed including but not limited to: Bleeding, infection, possibility of epidural hematoma and subsequent neurological compromise, dural puncture, headaches, spinal cord and/or nerve damage, side effects of steroid medication, and poor results regarding pain control. Patient understands wished to proceed. Patient will return to clinic in approximate 2 weeks for follow-up, was counseled as return appointment activity level and side effects to be aware of. Medication Injected: Med Injected: Procedure is lumbar epidural steroid injection under local anesthetic using sterile prep and drape at the L5-S1 level using C-arm fluoroscopic guidance in both AP and lateral views medications injected is 120 mg Depo-Medrol + 10 mL preservative-free normal saline and 2 mL contrast- condition at discharge is stable patient tolerated procedure well had no complications. Condition at Discharge: Condition at Discharge: Patient discharged stable, patient tolerated procedure well and had no complications. MARK ANTHONY URENA MD May 10, 2020 09:51
== END | disposition home or self-care (01) ==
LOC: PNCL 09:12
PROVIDERS: ATTEND Anesthesiology
DX: M51.16 Intervertebral disc disorders with radiculopathy, lumbar region (principal); M48.061 Spinal stenosis, lumbar region without neurogenic claudication; M96.1 Postlaminectomy syndrome, not elsewhere classified; M79.605 Pain in left leg; I10 Essential (primary) hypertension; E78.00 Pure hypercholesterolemia, unspecified; M19.90 Unspecified osteoarthritis, unspecified site; Z72.89 Other problems related to lifestyle; Z79.899 Other long term (current) drug therapy; Z98.890 Other specified postprocedural states; Z88.8 Allergy status to other drugs, medicaments and biological substances
CPT/HCPCS: 62323; J1030; J1040; Q9965

== ENCOUNTER → 2020-05-25 | Outpatient (CLI) | payer MEDICARE, BC ==
[2016-08-15 08:26] VITALS: BP 131/86
[~2020-05-25] MED LIST changes: -IOHEXOL 180 MG/ML 10 ML VIAL. ONE; -methylPREDNISolone ACETATE 40 MG/ML VIAL. ONE; -methylPREDNISolone ACETATE 80 MG/ML VIAL. ONE
--- NOTE | 2020-05-25 15:55 | KCIC ---
EXAMINATION: LOWER EXT JOINT WO LT INDICATIONS: Tear of medial meniscus left knee. Chronic knee pain.. TECHNIQUE: Multiplanar multisequence MRI of the left knee was obtained without contrast. COMPARISON: None. FINDINGS: MENISCI: There is a complete radial tear of the posterior horn-root junction medial meniscus with 3 mm extrusion of the meniscal body. Abnormal T2 signal extends into the posterior horn and body without touching the surface. The lateral meniscus is intact. LIGAMENTS: The anterior and posterior cruciate ligaments are intact. The medial collateral ligament and lateral collateral ligament complex are intact. EXTENSOR MECHANISM: The quadriceps and patellar tendons are intact. Fat pads are normal. Retinacula are intact. BONES AND CARTILAGE: There is deep partial and full-thickness cartilage loss along the lateral patellar facet and areas of deep partial and full-thickness cartilage loss along the trochlea. There is a 1.5 x 0.9 cm (AP by TR) full-thickness cartilage defect with fairly discrete margins at the posterior weightbearing medial femoral condyle. Superficial partial-thickness cartilage loss in the peripheral medial tibial plateau. Lateral compartment cartilage is intact. OTHER: Large joint effusion. No Lew cyst. Small interstitial tear of the distal semimembranosus tendon. IMPRESSION: 1. Complete radial tear posterior horn root junction medial meniscus with 3 mm extrusion of the meniscal body. 2. Medial and patellofemoral cartilage loss. Large full-thickness cartilage defect in the posterior weightbearing medial femoral condyle. Areas of deep partial and full-thickness cartilage loss along the lateral patellar facet. 3. Interstitial tear of the distal semimembranosus tendon. 4. Large joint effusion. Electronically signed by: Nany Polk MD (05/25/2020 3:51 PM) [id number]
== END ==
LOC: KCIC MRI 09:40
PROVIDERS: ATTEND Physician Assistant
DX: S83.242D Other tear of medial meniscus, current injury, left knee, subsequent encounter (principal); M25.462 Effusion, left knee; G89.29 Other chronic pain; X58.XXXD Exposure to other specified factors, subsequent encounter
CPT/HCPCS: 73721

== ENCOUNTER → 2020-06-29 | Outpatient (CLI) | payer MEDICARE, BC ==
[2016-08-15 08:26] VITALS: BP 131/86
[~2020-06-29] MED LIST changes: +HYDR-2763 PO; +PROM25TA10 PO; +RIVA10TA PO
== END ==
LOC: LAB 12:01
PROVIDERS: ATTEND Orthopaedic Surgery
DX: Z01.812 Encounter for preprocedural laboratory examination (principal); Z20.828 Contact with and (suspected) exposure to other viral communicable diseases
CPT/HCPCS: U0003

== ENCOUNTER 2020-07-04 12:01 | Day surgery (SDC) | payer MEDICARE, BC ==
--- NOTE | 2020-07-03 17:19 | PDOC1 ---
History and Physical Date of Admission Date of Admission 07/04/2020 Identification/Chief Complaint Chief Complaint left knee pain and slight swelling Source Source: Chart review, Patient History of Present Illness History of Present Illness 65 year old with relatively acute onset left knee pain. He had a prior right TKA but this pain is not severe and not like his OA pain of the other knee. Slight swelling and slight grinding. He tried and injection but only got temporary relief. Past Medical History Cardiovascular: HTN, Hyperlipidemia Musculoskeletal: low back pain, Osteoarthritis Past Surgical History Past Surgical History right knee 1971 right knee 2016 left shoulder 2002 lumbar 2014 Past Surgical History: Total knee replacement Family History Family History: Heart Disease Social History Smoke: No Current Medications Current Medications Current Medications Ondansetron HCl (Zofran) 4 mg PRN Q6HRS PRN IV NAUSEA/VOMITING; Start 07/04/20 at 07:00; Stop 07/05/20 at 06:59 Fentanyl Citrate (Fentanyl 2ml Vial) 25 mcg PRN Q5MIN PRN IV MILD PAIN 1-3; Start 07/04/20 at 07:00; Stop 07/05/20 at 06:59 Fentanyl Citrate (Fentanyl 2ml Vial) 50 mcg PRN Q5MIN PRN IV MODERATE TO SEVERE PAIN; Start 07/04/20 at 07:00; Stop 07/05/20 at 06:59 Morphine Sulfate (Morphine Sulfate) 1 mg PRN Q10MIN PRN IV SEVERE PAIN 7-10; Start 07/04/20 at 07:00; Stop 07/05/20 at 06:59 Ringer's Solution 1,000 ml @ 30 mls/hr Q24H IV ; Start 07/04/20 at 07:00; Stop 07/04/20 at 18:59 Lidocaine HCl (Xylocaine-Mpf 1% 2ml Vial) 2 ml PRN 1X PRN ID PRIOR TO IV START; Start 07/04/20 at 07:00; Stop 07/05/20 at 06:59 Hydromorphone HCl (Dilaudid) 0.5 mg PRN Q10MIN PRN IV SEV PAIN, Second choice; Start 07/04/20 at 07:00; Stop 07/05/20 at 06:59 Prochlorperazine Edisylate (Compazine) 5 mg PACU PRN PRN IV NAUSEA, MRX1; Start 07/04/20 at 07:00; Stop 07/05/20 at 06:59 Cefazolin Sodium 3 gm/Dextrose 100 ml @ 200 mls/hr 1X PREOP PRN IV PRIOR TO PROCEDURE; Start 07/04/20 at 06:00; Stop 07/04/20 at 15:00 Active Scripts Active Reported Tramadol Hcl 50 Mg Tablet 50 Mg PO Q4HRS PRN Pravastatin Sodium 40 Mg Tablet 40 Mg PO DAILY last dose last night next dose is tonight Felodipine Er (Felodipine) 10 Mg Tab.er.24h 10 Mg PO DAILY ot given in the hospital was substituting norvasc Hydrochlorothiazide Capsule (Hydrochlorothiazide) 12.5 Mg Capsule 12.5 Mg PO DAILY last dose this am next dose tomorrow am Allergies Allergies: Coded Allergies: NSAIDS (Non-Steroidal Anti-Inflamma (Verified Allergy, Intermediate, rash, 07/04/20) trazodone (Verified Allergy, Intermediate, 07/04/20) nightmares Physical Exam General: Alert, Cooperative HEENT: Atraumatic Lungs: Normal air movement Heart: RRR Abdomen: Soft Extremities: Other (The LEFT knee shows normal alignment, no masses. There is no effusion. There is tenderness at the medial joint line. Lexi's test is positive. There is medial joint line pain with deep flexion and especially with rotation of the tibia. The lateral joint line shows no tenderness. Range of motion is 0-135 degrees. There is trace patellofemoral crepitus. The knee is stable to varus and valgus stress without subluxation or laxity. The ACL feels intact on Justyna testing. Muscle strength is normal (5/5) for quadriceps and hamstrings, and muscle tone is normal. The skin is normal with no scars, rashes, lesions or ulcers. Light touch sensation is intact. No edema and no varicosities. Dorsalis pedis pulse is intact and capillary refill is normal) Neuro: Normal speech, Sensation intact Psych/Mental Status: Mental status NL, Mood NL Images Images [facility] [id number] [place] [address] IMAGING REPORT Signed PATIENT: BELEN GUSTAFSON ACCOUNT: [id number] : 1955 LOCATION: [facility] MRI AGE: 65 SEX: M EXAM STATUS: REG CLI ORD. PHYSICIAN: ELAINE CHEN Jr. REASON: TEAR OF MEDIAL MENISCUS OF LEFT KNEE PROCEDURE: LOWER EXT JOINT WO LT EXAMINATION: LOWER EXT JOINT WO LT INDICATIONS: Tear of medial meniscus left knee. Chronic knee pain.. TECHNIQUE: Multiplanar multisequence MRI of the left knee was obtained without contrast. COMPARISON: None. FINDINGS: MENISCI: There is a complete radial tear of the posterior horn-root junction medial meniscus with 3 mm extrusion of the meniscal body. Abnormal T2 signal extends into the posterior horn and body without touching the surface. The lateral meniscus is intact. LIGAMENTS: The anterior and posterior cruciate ligaments are intact. The medial collateral ligament and lateral collateral ligament complex are intact. EXTENSOR MECHANISM: The quadriceps and patellar tendons are intact. Fat pads are normal. Retinacula are intact. BONES AND CARTILAGE: There is deep partial and full-thickness cartilage loss along the lateral patellar facet and areas of deep partial and full-thickness cartilage loss along the trochlea. There is a 1.5 x 0.9 cm (AP by TR) full-thickness cartilage defect with fairly discrete margins at the posterior weightbearing medial femoral condyle. Superficial partial-thickness cartilage loss in the peripheral medial tibial plateau. Lateral compartment cartilage is intact. OTHER: Large joint effusion. No Lew cyst. Small interstitial tear of the distal semimembranosus tendon. IMPRESSION: 1. Complete radial tear posterior horn root junction medial meniscus with 3 mm extrusion of the meniscal body. 2. Medial and patellofemoral cartilage loss. Large full-thickness cartilage defect in the posterior weightbearing medial femoral condyle. Areas of deep partial and full-thickness cartilage loss along the lateral patellar facet. 3. Interstitial tear of the distal semimembranosus tendon. 4. Large joint effusion. Electronically signed by: Nany Polk MD (05/25/2020 3:51 PM) [id number] DICTATED and SIGNED BY: NANY POLK MD DATE: 05/25/20 1551 VTE Prophylaxis Ordered VTE Prophylaxis Devices: Yes VTE Pharmacological Prophylaxi: Yes Assessment/Plan Assessment/Plan I examined him, reviewed his MRI and x-rays and history. Despite the other knee requiring TKA (it had a remote severe injury) this knee has pain related to m eniscus tear with minimal OA and I recommend arthroscopy with meniscectomy. He agrees. We discussed potential risks such as bleeding, infection, neurovascular injury, blood clots, progressive arthritis, continued pain, or other potential surgical or anesthetic complications. He may eventually warrant a left total knee arthroplasty but he does not feel like he needs it yet nor do I, and I expect that an arthroscopic procedure will give him relief of symptoms for 5 to 10 years. There are some risk of early failure of arthroscopy with rapidly progressive arthritis. All of his questions about surgery were answered and he desires to proceed. All of his questions were answered. The surgical site was marked by me. Justifications for Admission Other Justification ABIGAIL CARVER MD Jul 03, 2020 17:19
[~2020-07-04] VITALS: Ht 184.2 cm; Wt 124.3 kg
[~2020-07-04 12:01] MED LIST changes: +BUPIVACAINE MPF 0.25% 30 ML VIAL. ONE; +DEXAMETHASONE SOD PHOS 4 MG/ML VIAL ONE; +EPINEPHrine VIAL 30 MG/30 ML VIAL ONE; -HYDR-2763 PO; +HYDROmorphone 2 MG/ML VIAL IV PRN; +IV RINGERS,LACTATED 1000ML 1,000 ML IV SCH; +LIDOCAINE 1% PF 2 ML VIAL. ID PRN; +LIDOCAINE 2% PF 5 ML VIAL. ONE; +MORPHINE SULFATE 2 MG/ML VIAL. IV PRN; +ONDANSETRON PF 4 MG/2 ML VIAL. IV PRN; +ONDANSETRON PF 4 MG/2 ML VIAL. ONE; +PROCHLORPERAZINE 10 MG/2 ML VIAL. IV PRN; -PROM25TA10 PO; +PROPOFOL 10 MG/ML (20ML) VIAL. IV ONE; -RIVA10TA PO; +ceFAZolin SODIUM 3 GM in IV DEXTROSE 5% 100ML 100 ML IV PRN; +fentaNYL PF VIAL 100 MCG/2 ML VIAL IV PRN; +fentaNYL PF VIAL 100 MCG/2 ML VIAL ONE
[2020-07-04] MEDS ORDERED: BUPIVACAINE-EPI 0.25%-1:200000 MPF 30 ML VIAL. INJ ONE (12:30)
[2020-07-04] MEDS ORDERED: fentaNYL PF VIAL 100 MCG/2 ML VIAL ONE (13:16)
--- NOTE | 2020-07-04 13:46 | PDOC4 ---
Operative Note Operative Note Date of Procedure: July 04, 2020 Preoperative Diagnosis: left knee medial meniscus tear Postoperative Diagnosis: * Complex tear of medial meniscus, current injury, left knee, initial encounter S83.232A * Loose body in knee, left knee M23.42 Procedures Performed: * Left knee arthroscopy, surgical, with meniscectomy, MEDIAL, including meniscal shaving, including debridement/shaving of articular cartilage (chondroplasty) CPT 93356 * Left knee arthroscopy with loose body removal from the LATERAL compartment CPT 64217-14 Surgeon: Abigail Lai MD In Processing Instructor: FAWAD Hobbs Anesthesia: General Estimated Blood Loss: 5 mL Specimens: none Drains: none Complications: none Tourniquet time: 28 minutes at 300 mm Hg Indications for Procedure: The patient is a 65-year-old with left knee pain, unrelieved with nonoperative treatment. Exam and MRI are consistent with a meniscus tear of the medial meniscus at the root. We talked about the risks and benefits of proceeding with an arthroscopic procedure. We talked about potential risks of ongoing pain, progressive arthritis, bleeding, infection, blood clots, or other potential surgical or anesthetic complications. All of the patient's questions about surgery were answered and they desired to proceed. Written consent was obtained. Description of Operation: The patient was identified in the preoperative holding area. The correct left knee was marked by me. The patient was taken to the operating room, where a general anesthetic was used. Preoperative antibiotics were given intravenously. A time-out procedure was performed. A tourniquet was placed on the upper thigh. Local anesthetic 20 mL of 0.25% bupivacaine was injected using sterile technique into the knee joint. The limb was prepared circumferentially with ChloraPrep solution and sterile waterproof arthroscopy drapes were applied. The limb was exsanguinated with an Esmarch bandage and the tourniquet was inflated. Lateral and medial arthroscopy portals were established. The medial meniscus showed a complex unrepairable tear with unstable flaps. A meniscectomy was performed with basket forceps and the motorized shaver back to a smooth stable base, and the resection tapered into the middle one-third of the meniscus.The medial tibiofemoral joint showed chondromalacia Outerbridge grade III, and a shaving chondroplasty was performed removing unstable fragments of cartilage with the shaver. The intercondylar notch was free of loose bodies, and the ACL was probed and was stable to probing and intact. The lateral tibiofemoral joint showed a normal lateral meniscus, so no lateral meniscectomy was required. There was a 10 mm loose body in the lateral compartment which was removed with a grasper. The lateral articular surfaces showed chondromalacia Outerbridge grade I, so no chondroplasty was required. The patellofemoral joint showed chondromalacia Outerbridge grade I, so no chondroplasty was required. The suprapatellar pouch, medial and lateral gutters were free of any additional loose bodies. Copious irrigation was used to drain all meniscal and chondral fragments, and the knee was drained of fluid. The portals were closed with #3-0 Prolene interrupted sutures. Additional local anesthetic, 30 mL of 0.25% bupivacaine with epinephrine was injected. A bulky sterile dressing was applied and the tourniquet was released. Needle and sponge counts were correct and there were no apparent complications. ABIGAIL LAI MD Jul 04, 2020 13:46
[2020-07-04 14:15] VITALS: BP 132/76
[2020-07-04] MEDS ORDERED: HYDROcodone/APAP 7.5/325MG 1 TAB TABLET PO PRN ×2 (14:15)
[2020-07-04] MEDS ORDERED: HYDR-2763 PO (14:15)
[2020-07-04] MEDS ORDERED: PROM25TA10 PO (14:16)
[2020-07-04] MEDS ORDERED: RIVA10TA PO (14:17)
== END 2020-07-04 15:05 | disposition home or self-care (01) ==
LOC: SURG 12:01
PROVIDERS: ATTEND Orthopaedic Surgery
DX: S83.232A Complex tear of medial meniscus, current injury, left knee, initial encounter (principal); M23.42 Loose body in knee, left knee; M25.462 Effusion, left knee; I10 Essential (primary) hypertension; E78.5 Hyperlipidemia, unspecified; M19.90 Unspecified osteoarthritis, unspecified site; Z98.890 Other specified postprocedural states; Z96.653 Presence of artificial knee joint, bilateral; Y93.89 Activity, other specified; Y92.89 Other specified places as the place of occurrence of the external cause; Y99.8 Other external cause status; Z88.8 Allergy status to other drugs, medicaments and biological substances; Z79.899 Other long term (current) drug therapy
CPT/HCPCS: 29881; J0171; J1100; J2405; J2704; J3010; J3490; J7120

== ENCOUNTER → 2020-12-19 | Outpatient (CLI) | payer MEDICARE, BC ==
[~2020-12-19] MED LIST changes: -BUPIVACAINE MPF 0.25% 30 ML VIAL. ONE; -DEXAMETHASONE SOD PHOS 4 MG/ML VIAL ONE; -EPINEPHrine VIAL 30 MG/30 ML VIAL ONE; +HYDR-2763 PO; -HYDROmorphone 2 MG/ML VIAL IV PRN; +IOHEXOL 180 MG/ML 10 ML VIAL. ONE; -IV RINGERS,LACTATED 1000ML 1,000 ML IV SCH; -LIDOCAINE 1% PF 2 ML VIAL. ID PRN; -LIDOCAINE 2% PF 5 ML VIAL. ONE; -MORPHINE SULFATE 2 MG/ML VIAL. IV PRN; -ONDANSETRON PF 4 MG/2 ML VIAL. IV PRN; -ONDANSETRON PF 4 MG/2 ML VIAL. ONE; -PROCHLORPERAZINE 10 MG/2 ML VIAL. IV PRN; +PROM25TA10 PO; -PROPOFOL 10 MG/ML (20ML) VIAL. IV ONE; +RIVA10TA PO; -ceFAZolin SODIUM 3 GM in IV DEXTROSE 5% 100ML 100 ML IV PRN; -fentaNYL PF VIAL 100 MCG/2 ML VIAL IV PRN; -fentaNYL PF VIAL 100 MCG/2 ML VIAL ONE; +methylPREDNISolone ACETATE 40 MG/ML VIAL. ONE; +methylPREDNISolone ACETATE 80 MG/ML VIAL. ONE
--- NOTE | 2020-12-19 15:23 | PDOC ---
Progress Note - Pain Clinic Date of Service: DOS: DATE: 12/19/20 TIME: 15:20 Diagnosis: Dx: Lumbar radiculopathy lumbar degenerative disease lumbar spinal stenosis and post lumbar laminectomy syndrome History or Present Illness: HPI: 65-year-old male returns follow-up status post lumbar epidural steroid injection most recently June 21, 2020. Patient did very well about 80% improvement for about 6 months, patient reports the pain is returning now in the low back and the left lower extremity as it was previously radiating from the posterior gluteus to the calf and thigh on the left side and to the foot and the ankle patient reports is aching and dull in the back tight in the back radiating shooting in the left lower extremity patient reports is worse with walking standing better with sitting or laying down originally was doing much better distance walking distances household activities work activities now the pain is returned patient reports is a 6 on scale 10 is worse over the past week for an average to its least is a 4 today patient reports no new motor or sensory deficits no new bowel or bladder incontinence or other complaints. Physical Exam: VS: Blood pressure is 141/87 pulse 98 respirations 18 temperature 99.1 F height is 6 foot weight weight is 274 pounds PE: PHYSICAL EXAMINATION: GENERAL: The patient is awake, alert, oriented, appropriate, very pleasant demeanor HEENT: Shows normocephalic, atraumatic. Extraocular movements are intact and symmetrical. Oral cavity: Mucous membranes moist and pink. NECK: Shows anterior throat supple without palpable lymphadenopathy noted. Swallow reflex symmetrical. CHEST: Shows normal on inspection. Breath sounds are clear bilaterally, distant but no rales or rhonchi. HEART: Shows S1, S2 clear. No murmurs auscultated. ABDOMEN: Soft, nontender, nondistended, obese. No palpable organomegaly is not ed. No rebound or guarding demonstrated. BACK: Shows spine grossly in the midline. Normal-appearing cervical lordotic curvature. There is slightly increased thoracic kyphosis, some minor flattening of the lumbar lordotic curvature. Well-healed midline surgical scar is again noted. Lumbar paraspinous muscles show symmetrical on inspection, on palpation shows some moderate tenderness diffusely throughout the upper, middle and lower distribution of the paraspinous muscles without specific trigger points, without radiation of pain. The patient has good rotational motion of the lumbar spine, both laterally as well as extension and flexion without significant difficulty. EXTREMITIES: Lower extremities show deep tendon reflexes 1+ in the patellar and tendo calcaneus tendons. Motor exam is 5 on a scale of 5 with right dorsiflexion, extension, quadriceps and hamstring flexion and 4/5 on the left. Peripheral pulses are 1+ posterior tibial. No peripheral edema is noted bilaterally. Lower extremities are warm and dry to touch, equal in color and appearance. SKIN: Shows warm and dry, good turgor. No edema. No sores, rashes or bruising throughout. Procedure: Procedure: Options discussed with the patient. Patient's old chart reviewed his his current medication regimen updated current review of systems updated today as well. We will proceed with a first in the series lumbar epidural steroid injection stable fluoroscopic guidance. Risks were discussed including but not limited to: Bleeding, infection, possibility of epidural hematoma and subsequent neurological compromise, dural puncture, headaches, spinal cord and/or nerve damage, side effects of steroid medication, and poor results regarding pain control. Patient understands and wished to proceed. Patient will return to clinic in approximate 2 weeks for follow-up, was counseled as return appointment activity level and side effects to be aware of. Medication Injected: Med Injected: Procedure is lumbar epidural steroid injection under local anesthetic using sterile prep and drape at the L5-S1 level using C-arm fluoroscopic guidance in both AP and lateral views medications injected is 120 mg Depo-Medrol +10mL preservative-free normal saline and 2 mL contrast- condition at discharge is stable patient tolerated procedure well had no complications. Condition at Discharge: Condition at Discharge: Condition at discharge stable, patient already the procedure well and had no complications. MARK ANTHONY URENA MD Dec 19, 2020 15:23
--- NOTE | 2020-12-19 15:24 | PDOC4 ---
PROCEDURE Procedure Patient was consented for lumbar epidural steroid injection. Risks were dis cussed including but not limited to: Bleeding, infection, possibility of epidural hematoma and subsequent neurological compromise, dural puncture, headaches, spinal cord and/or nerve damage, side effects of steroid medication, and poor results regarding pain control. Patient understands and wished to proceed. Procedure is lumbar epidural steroid injection under local anesthetic using sterile prep and drape at the L5-S1 level using C-arm fluoroscopic guidance in both AP and lateral views medications injected is 120 mg Depo-Medrol +10mL preservative-free normal saline and 2 mL contrast- condition at discharge is stable patient tolerated procedure well had no complications. MARK ANTHONY URENA MD Dec 19, 2020 15:24
== END | disposition home or self-care (01) ==
LOC: PNCL 14:13
PROVIDERS: ATTEND Anesthesiology
DX: M51.16 Intervertebral disc disorders with radiculopathy, lumbar region (principal); M48.061 Spinal stenosis, lumbar region without neurogenic claudication; M96.1 Postlaminectomy syndrome, not elsewhere classified; I10 Essential (primary) hypertension; E78.00 Pure hypercholesterolemia, unspecified; E66.9 Obesity, unspecified; M19.90 Unspecified osteoarthritis, unspecified site; Z79.899 Other long term (current) drug therapy; Z98.890 Other specified postprocedural states; Z88.8 Allergy status to other drugs, medicaments and biological substances
CPT/HCPCS: 62323; J1030; J1040; Q9965

== ENCOUNTER → 2021-01-24 | Outpatient (CLI) | payer MEDICARE, BC ==
[~2021-01-24] MED LIST changes: +ACET-1871 PO
--- NOTE | 2021-01-24 14:32 | PDOC ---
Progress Note - Pain Clinic Date of Service: DOS: DATE: 01/24/21 TIME: 14:29 Diagnosis: Dx: Lumbar radiculopathy with lumbar degenerative disc disease lumbar spinal stenosis and lumbar post laminectomy syndrome History or Present Illness: HPI: 65-year-old male returns for follow-up status post lumbar epidural steroid injection x1. Patient reports about 80% improvement still currently doing much better with pain still radiating the low back and the left lower extremity posterior gluteus posterior thigh posterior calf patient reports that shooting on and off in intensity but much better than it was. Patient rates it as a 5 on a scale of 10 is worse over the past week 3 on average 1 at its least and is a 3 today patient reports no new motor or sensory deficits still has some significant pain radiating in the left lower extremity as noted and new finding of medication he has added Tylenol 650 mg to take before bedtime as it does help him sleep through the pain at night patient occasionally is awakened by the sleep table which is only very rarely. Patient reports no new motor or sensory deficits no bowel or bladder incontinence. Physical Exam: VS: Blood pressure is 136/94 pulse 124 respirations 18 temperature 98.0 F height 6 foot 1 inch weight is 272 pounds PE: PHYSICAL EXAMINATION: GENERAL: The patient is awake, alert, oriented, appropriate, very pleasant in demeanor. HEENT: Shows normocephalic, atraumatic. Extraocular movements are intact and symmetrical. NECK: Shows anterior throat supple without palpable lymphadenopathy noted. CHEST: Shows normal on inspection. Breath sounds are clear bilaterally. HEART: Shows S1, S2 clear. No murmurs auscultated. ABDOMEN: Soft, nontender, nondistended, obese. BACK: Shows spine grossly in the midline. Normal-appearing cervical lordotic curvature. There is slightly increased thoracic kyphosis, some minor flattening of the lumbar lordotic curvature. Lumbar paraspinous muscles show symmetrical on inspection, on palpation shows some moderate tenderness diffusely throughout the upper, middle and lower distribution of the paraspinous muscles, but without specific trigger points, without radiation of pain. The patient has good rotational motion of the lumbar spine, both laterally as well as extension and flexion without significant difficulty. EXTREMITIES: Lower extremities show deep tendon reflexes 1+ in the patellar and tendo calcaneus tendons. Motor exam is 5 on a scale of 5 with right dorsiflexion, extension, quadriceps and hamstring flexion and 4/5 on the left. Peripheral pulses are 1+ posterior tibial. No peripheral edema is noted bilaterally. Lower extremities are warm and dry to touch, equal in color and appearance. SKIN: Shows warm and dry, good turgor. No edema. No sores, rashes or bruising throughout. Procedure: Procedure: Options discussed with patient. Patient's old chart was reviewed as was his current medication regimen updated and current review of systems updated today as well. We will proceed with a second lumbar epidural steroid injection today with fluoroscopic guidance. Risks were discussed including but not limited to: Bleeding, infection, possibility of epidural hematoma and subsequent neurological compromise, dural puncture, headaches, spinal cord and/or nerve damage, side effects of steroid medication, and poor results regarding pain control. Patient understands and wished to proceed. Patient will return to the clinic in approximate 2 weeks for follow-up, was counseled as to return appointment activity level and side effects to be aware of. Medication Injected: Med Injected: Procedure is lumbar epidural steroid injection under local anesthetic using sterile prep and drape at the L5-S1 level using C-arm fluoroscopic guidance in both AP and lateral views medications injected is 120 mg Depo-Medrol +10mL preservative-free normal saline and 2 mL contrast- condition at discharge is stable patient tolerated procedure well had no complications. Condition at Discharge: Condition at Discharge: Condition at discharge stable, patient alert the procedure well and had no complications. MARK ANTHONY URENA MD Jan 24, 2021 14:32
--- NOTE | 2021-01-24 14:34 | PDOC4 ---
Procedure Note: Procedure Note: Patient was consented for lumbar epidural steroid injection. Risks were discussed including but not limited to: Bleeding, infection, possibility of epidural hematoma and subsequent neurological compromise, dural puncture, headaches, spinal cord and/or nerve damage, side effects of steroid medication, and poor results regarding pain control. Patient understands and wished to proceed. Procedure is lumbar epidural steroid injection under local anesthetic using sterile prep and drape at the L5-S1 level using C-arm fluoroscopic guidance in both AP and lateral views medications injected is 120 mg Depo-Medrol +10mL preservative-free normal saline and 2 mL contrast- condition at discharge is stable patient tolerated procedure well had no complications. MARK ANTHONY URENA MD Jan 24, 2021 14:34
== END | disposition home or self-care (01) ==
LOC: PNCL 14:07
PROVIDERS: ATTEND Anesthesiology
DX: M51.16 Intervertebral disc disorders with radiculopathy, lumbar region (principal); M48.061 Spinal stenosis, lumbar region without neurogenic claudication; M96.1 Postlaminectomy syndrome, not elsewhere classified; I10 Essential (primary) hypertension; E78.00 Pure hypercholesterolemia, unspecified; E66.9 Obesity, unspecified; K21.9 Gastro-esophageal reflux disease without esophagitis; Z79.899 Other long term (current) drug therapy; Z98.890 Other specified postprocedural states; Z88.8 Allergy status to other drugs, medicaments and biological substances
CPT/HCPCS: 62323; J1030; J1040; Q9965

== ENCOUNTER → 2021-05-25 | Outpatient (CLI) | payer MEDICARE, BC ==
--- NOTE | 2021-05-25 11:24 | PDOC ---
Progress Note - Pain Clinic Date of Service: DOS: DATE: 05/25/21 TIME: : Diagnosis: Dx: Lumbar radiculopathy with lumbar degenerative disc disease lumbar spinal stenosis and lumbar postlaminectomy syndrome History or Present Illness: HPI: 66-year-old male status post lumbar epidural to injection last seen January 24, 2021 patient did very well with about 70% improvement for about 5-1/2 months bibiana aragon reports pain is beginning to return patient reports pain in the low back and left lower extremity posterior gluteus posterior lateral thigh posterior calf as well as the anterior thigh medial thigh patient reports occasionally pain on the right side but mostly just on the left side patient has been building a new bathroom in his basement which is exacerbated the pain to some extent with some increased activity bending stooping and lifting and some pain on the right side now as well as the left patient reports is a 7 on scale 10 is worse over the past week 5 on average to its least is a 5 today. Patient reports worse with bending stooping lifting and twisting better with sitting or laying down patient reports it generally does not awaken her from sleep at night but has over the past week or so patient describes pain as aching the back tight in the back shooting in the legs tingling and constant more on the left side patient reports it wakes him sleep about once or twice a night has for the past week or so initially was doing much better distance walking doing household activities try with greater ease and comfort doing home projects that with greater ease as well as sleeping better. Patient reports no bowel or bladder incontinence. Physical Exam: VS: Blood pressure is 139/90 pulse 103 respirations 18 temperature 98.8 F height is 6 foot 1 his weight is 282 pounds PE: PHYSICAL EXAMINATION: GENERAL: The patient is awake, alert, oriented, appropriate, very pleasant in demeanor HEENT: Shows normocephalic, atraumatic. Extraocular movements are intact and symmetrical. Oral cavity: Mucous membranes moist and pink. NECK: Shows anterior throat supple without palpable lymphadenopathy noted. Swallow reflex symmetrical. CHEST: Shows normal on inspection. Breath sounds are clear bilaterally, distant but no rales or rhonchi or wheezes. HEART: Shows S1, S2 clear. No murmurs auscultated. ABDOMEN: Soft, nontender, nondistended, obese. No palpable organomegaly is noted. BACK: Shows spine grossly in the midline. Normal-appearing cervical lordotic curvature. There is slightly increased thoracic kyphosis, some flattening of the lumbar lordotic curvature, with well-healed midline surgical scar. Lumbar paraspinous muscles show symmetrical on inspection, on palpation shows some moderate tenderness diffusely throughout the upper, middle and lower distribution of the paraspinous muscles without specific trigger points, without radiation of pain. The patient has good rotational motion of the lumbar spine, both laterally as well as extension and flexion without significant difficulty. No tenderness over the spinous processes, sacrum or sacroiliac regions. EXTREMITIES: Lower extremities show deep tendon reflexes 1+ in the patellar and tendo calcaneus tendons. Motor exam is 5 on a scale of 5 with right dorsiflexion, extension, quadriceps and hamstring flexion and 4/5 on the left. Peripheral pulses are 1 posterior tibial. No peripheral edema is noted bilaterally. Lower extremities are warm and dry. SKIN: Shows warm and dry, good turgor. No edema. No sores, rashes or bruising throughout. Procedure: Procedure: Options were discussed with the patient. Patient chart reviewed his current me dication regimen updated current review of systems updated today as well. We will proceed with a lumbar epidural steroid injection today with fluoroscopic guidance. Risks were discussed including but not limited to: Bleeding, infection, possibility of epidural hematoma and subsequent neurological compromise, dural puncture, headaches, spinal cord and/or nerve damage, side effects of steroid medication, and poor results regarding pain control. Patient understands and wished to proceed. Patient will return to clinic in approximately 2 weeks for follow-up, was counseled return appointment, activity level, and side effect to be aware of. Medication Injected: Med Injected: Procedure is lumbar epidural steroid injection under local anesthetic using sterile prep and drape at the L5-S1 level using C-arm fluoroscopic guidance in both AP and lateral views medications injected is 120 mg Depo-Medrol +10mL preservative-free normal saline and 2 mL contrast- condition at discharge is sta ble patient tolerated procedure well had no complications. Condition at Discharge: Condition at Discharge: Condition at discharge stable, patient already procedure well and had no complications. MARK ANTHONY URENA MD May 25, 2021 11:24
--- NOTE | 2021-05-25 11:25 | PDOC4 ---
Procedure Note: ICD 10 Code: ICD 10 Code: M54.16 M51.36 M4 8.06 M 96.1 Procedure Note: Patient was consented for lumbar epidural steroid injection with fluoroscopic guidance risks were discussed including but not limited to: Bleeding, infection, possibility of epidural hematoma and subsequent neurological compromise, dural puncture, headaches, spinal cord and/or nerve damage, side effects of steroid medication, and poor results regarding pain control. Patient understands and wished to proceed. Procedure is lumbar epidural steroid injection under local anesthetic using sterile prep and drape at the L5-S1 level using C-arm fluoroscopic guidance in both AP and lateral views medications injected is 120 mg Depo-Medrol +10mL preservative-free normal saline and 2 mL contrast- condition at discharge is stable patient tolerated procedure well had no complications. MARK ANTHONY URENA MD May 25, 2021 11:25
== END | disposition home or self-care (01) ==
LOC: PNCL 10:54
PROVIDERS: ATTEND Anesthesiology
DX: M51.16 Intervertebral disc disorders with radiculopathy, lumbar region (principal); M48.061 Spinal stenosis, lumbar region without neurogenic claudication; M96.1 Postlaminectomy syndrome, not elsewhere classified; I10 Essential (primary) hypertension; E78.00 Pure hypercholesterolemia, unspecified; E66.9 Obesity, unspecified; M19.90 Unspecified osteoarthritis, unspecified site; Z79.899 Other long term (current) drug therapy; Z98.890 Other specified postprocedural states; Z88.8 Allergy status to other drugs, medicaments and biological substances
CPT/HCPCS: 62323; J1030; J1040; Q9965

== ENCOUNTER → 2021-10-25 | Outpatient (CLI) | payer MEDICARE, BC ==
[~2021-10-25] MED LIST changes: +DEXAMETHASONE PRES.FREE 10 MG/ML VIAL. ONE; -methylPREDNISolone ACETATE 40 MG/ML VIAL. ONE; -methylPREDNISolone ACETATE 80 MG/ML VIAL. ONE
--- NOTE | 2021-10-25 10:45 | PDOC ---
Progress Note - Pain Clinic Date of Service: DOS: DATE: 10/25/21 TIME: 10:41 Diagnosis: Dx: Lumbar radiculopathy with lumbar degenerative disease and lumbar spinal stenosis with lumbar postlaminectomy syndrome History or Present Illness: HPI: 66-year-old male returns for follow-up status post lumbar epidural steroid injection last seen May 25, 2021 patient did very well about 75% improvement in his low back and left lower extremity pain patient reports pain began to return over the past 2 weeks or so but before that was about 75% improved and doing much better patient reports now some pain in the right side as well in the gluteus and posterior thigh which is new for him is generally only on the left side and still has a left-sided posterior gluteus posterior thigh posterior lateral calf and anterior medial lower leg as well as into the foot and calf on the left side with some pain with walking and standing patient reports no pain in the right lower extremity but into the gluteus and the upper thigh on the right side which he has not had before. Patient reports no recent injury or accident or falls or loss of motor function. Patient reports is a 7 on scale 10 is worse over the past week for an average 3 its least is a 3 today patient reports its worse with walking and standing changing positions better with sitting or laying down generally not awaken from sleep at night feels better with sitting as well. Patient reports no bowel or bladder incontinence. Physical Exam: VS: Blood pressure is 151/98 pulse 98 respirations 18 temperature 98.3 F height 6 feet 1 inch weight is 279 pounds. PE: PHYSICAL EXAMINATION: GENERAL: The patient is awake, alert, oriented, appropriate, very pleasant in demeanor HEENT: Shows normocephalic, atraumatic. Extraocular movements are intact and symmetrical. Oral cavity: Mucous membranes moist and pink. NECK: Shows anterior throat supple without palpable lymphadenopathy noted. Swallow reflex symmetrical. CHEST: Shows normal on inspection. Breath sounds are clear bilaterally, distant but no rales or rhonchi auscultated. HEART: Shows S1, S2 clear. No murmurs auscultated. ABDOMEN: Soft, nontender, nondistended. No palpable organomegaly is noted. BACK: Shows spine grossly in the midline. Normal-appearing cervical lordotic curvature. There is slightly increased thoracic kyphosis, some flattening of the lumbar lordotic curvature, with well-healed surgical scarring again noted. Lumbar paraspinous muscles show symmetrical on inspection, on palpation shows some moderate tenderness diffusely throughout the upper, middle and lower distribution of the paraspinous muscles without specific trigger points, without radiation of pain. The patient has good rotational motion of the lumbar spine, both laterally as well as extension and flexion without significant difficulty. EXTREMITIES: Lower extremities show deep tendon reflexes 1+ in the patellar and tendo calcaneus tendons. Motor exam is 5 on a scale of 5 with right dorsiflexion, extension, quadriceps and hamstring flexion and 4/5 on the left. Peripheral pulses are 1+ posterior tibial. No peripheral edema is noted bilate rally. Lower extremities are warm and dry. SKIN: Shows warm and dry, good turgor. No edema. No sores, rashes or bruising throughout. Procedure: Procedure: Options were discussed with the patient. Patient's old chart was reviewed his current medication regimen updated current review of systems updated today as well. We will proceed with a lumbar epidural steroid injection today with fluoroscopic guidance. Risks were discussed including but not limited to: Bleeding, infection, possibility of epidural hematoma and subsequent neurological compromise, dural puncture, headaches, spinal cord and/or nerve damage, side effects of steroid medication, and poor results regarding pain control. Patient understands and wished to proceed. She will return to clinic in approximately 2 weeks for follow-up, was counseled as to return appointment, activity level, and side effect to be aware of. Medication Injected: Med Injected: Procedure is lumbar epidural steroid injection under local anesthetic using sterile prep and drape at the L5-S1 level using C-arm fluoroscopic guidance in b oth AP and lateral views medications injected is 120 mg methylprednisolone +10mL preservative-free normal saline and 2 mL contrast- condition at discharge is stable patient tolerated procedure well had no complications. Condition at Discharge: Condition at Discharge: Condition at discharge stable, paced tolerated procedure well and had no complications. MARK ANTHONY URENA MD Oct 25, 2021 10:45
--- NOTE | 2021-10-25 10:45 | PDOC4 ---
Procedure Note: ICD 10 Code: ICD 10 Code: M54.16 M51.36 M48.06 M96.1 Procedure Note: Patient was consented for lumbar epidural steroid injection with fluoroscopic guidance. Risks were discussed including but not limited to: Bleeding, infection, possibility of epidural hematoma and subsequent neurological compromise, dural puncture, headaches, spinal cord and/or nerve damage, side effects of steroid medication, and poor results regarding pain control. Patient understands and wished to proceed. Procedure is lumbar epidural steroid injection under local anesthetic using sterile prep and drape at the L5-S1 level using C-arm fluoroscopic guidance in both AP and lateral views medications injected is 120 mg methylprednisolone +10mL preservative-free normal saline and 2 mL contrast- condition at discharge is stable patient tolerated procedure well had no complications. MARK ANTHONY URENA MD Oct 25, 2021 10:45
== END | disposition home or self-care (01) ==
LOC: PNCL 09:48
PROVIDERS: ATTEND Anesthesiology
DX: M51.16 Intervertebral disc disorders with radiculopathy, lumbar region (principal); M48.061 Spinal stenosis, lumbar region without neurogenic claudication; M96.1 Postlaminectomy syndrome, not elsewhere classified; I10 Essential (primary) hypertension; E78.00 Pure hypercholesterolemia, unspecified; E66.9 Obesity, unspecified; M19.90 Unspecified osteoarthritis, unspecified site; Z72.89 Other problems related to lifestyle; Z79.899 Other long term (current) drug therapy; Z98.890 Other specified postprocedural states; Z88.8 Allergy status to other drugs, medicaments and biological substances
CPT/HCPCS: 62323; J1100; Q9965